=== PATIENT | female | born 1990 | race Caucasian/White ===

== ENCOUNTER 2017-08-30 13:44 | Emergency (ER) | payer OTHER ==
[~2017-08-30] VITALS: Ht 170.2 cm; Wt 72.6 kg
--- NOTE | 2017-08-30 14:00 | NUR ---
pt aox4, here with c/o cough. ER MD in room for MSE. pt in no acute distress, respirations are even and unlabored. no respiratory distress. waiver signed per pt request.
--- NOTE | 2017-08-30 14:24 | NUR ---
Patient discharged to home in stable conditon. Written and verbal after care instructions given along with RX. Patient verbalizes understanding of instructions.
[2017-08-30 14:26] VITALS: BP 126/80
== END 2017-08-30 14:27 | disposition home or self-care (01) ==
LOC: ER 13:45
DX: R05 Cough (principal)
CPT/HCPCS: 71045; 99283; A4663